=== PATIENT | female | born 1985 | race Caucasian/White ===

== ENCOUNTER 2018-09-27 12:43 | Emergency (ER) | payer MEDICAID ==
[~2018-09-27] VITALS: Ht 170.2 cm; Wt 109.1 kg
[~2018-09-27 12:43] MED LIST: CARI350T PO; CLIN300C85 PO; HYDR-4383 PO
[2018-09-27] MEDS ORDERED: TRAM50TA2 PO (14:06)
[2018-09-27] MEDS ORDERED: ERYT1OIN6 RIGHTEYE (14:06)
[2018-09-27 14:22] VITALS: BP 131/62
== END 2018-09-27 14:25 | disposition home or self-care (01) ==
LOC: ER 12:43
DX: H00.12 Chalazion right lower eyelid (principal); J45.909 Unspecified asthma, uncomplicated; G89.29 Other chronic pain; I25.2 Old myocardial infarction; Z88.6 Allergy status to analgesic agent; Z86.73 Personal history of transient ischemic attack (TIA), and cerebral infarction without residual deficits; Z90.49 Acquired absence of other specified parts of digestive tract; Z98.890 Other specified postprocedural states; Z90.89 Acquired absence of other organs; Z86.14 Personal history of Methicillin resistant Staphylococcus aureus infection
CPT/HCPCS: 99283

== ENCOUNTER 2018-11-02 22:06 | Emergency (ER) | payer MEDICAID ==
[~2018-11-02] VITALS: Ht 170.2 cm; Wt 109.0 kg
[~2018-11-02 22:06] MED LIST changes: +CLIN-96 PO; -CLIN300C85 PO
[2018-11-02 22:11] VITALS: BP 133/85
--- NOTE | 2018-11-02 22:35 | NUR ---
LATE ENTRY 2229 ADMITING CAME BACK TO TELL ME THE PT. WANTED TO LEAVE. I ASKED ADMITTING TO TELL HER I WAS CLEANING THE ROOM AND TO GIVE ME 3 MINUTES AND I WOULD CALL HER BACK. HOUSE KEEPING AND MY SELF CLEANED AND TURNED OVER ROOM 13
--- NOTE | 2018-11-02 22:35 | NUR ---
WENT TO CALL PT. BACK. ADMITTING STATED " SHE JUST WALKED OUT THE DOOR" I WENT OUT TO THE PARKING LOT AND HEARD A CAR START. I WALKED UP TO THE WINDOW AND THEY ROLLED IT DOWN. I ASKED " ARE YOU GALE?" SHE SAID YES I ASKED "DO YOU WANT TO COME BACK, I HAVE A ROOM READY FOR YOU" SHE STATED "NO! I DO NOT WANT TO BE SEEN NOW ITS OK I CHANGED MY MIND" I SAID OK AND THE ASSOCIATE PROFESSOR OF MUSIC BACKED UP AND THEY LEFT. PT. ACTED UP SET AND I HAVE NO CLUE WHY.
== END 2018-11-02 22:34 | disposition left against medical advice (07) ==
LOC: ER 22:06
DX: M79.644 Pain in right finger(s) (principal); Z53.21 Procedure and treatment not carried out due to patient leaving prior to being seen by health care provider